=== PATIENT | female | born 1955 | race African-American/Black ===

== ENCOUNTER 2023-06-23 06:13 | Observation (INO) | payer MEDICARE ==
[2023-06-23 06:54] VITALS: BMI 28.2
[2023-06-23] MEDS ORDERED: Bisacodyl 5 MG TAB PO PRN (08:04)
[2023-06-23] MEDS ORDERED: Ondansetron PF 4 MG/2 ML Vial IVP PRN (08:04)
[2023-06-23] MEDS ORDERED: HumaLOG 300 UNITS/3 ML VIAL SC PRN ×2 (08:04)
[2023-06-23] MEDS ORDERED: Dextrose 5% in Water 1,000 ML IV PRN (08:04)
[2023-06-23] MEDS ORDERED: Glucagon 1 MG/ML KIT IM PRN (08:04)
[2023-06-23] MEDS ORDERED: Senokot S 8.6-50 MG TAB PO PRN (08:04)
[2023-06-23] MEDS ORDERED: Dextrose 50% Abboject 50 ML SYRINGE SLOW IVP PRN (08:04)
[2023-06-23] MEDS ORDERED: Bisacodyl 10 MG SUPP PR PRN (08:04)
[2023-06-23] MEDS: Lisinopril 10 MG TAB PO SCH (09:00)
[2023-06-23] MEDS: Sodium Chloride 0.9% 1,000 ML IV SCH ×2 (09:03→23:57)
[2023-06-23] MEDS: Pantoprazole 40 MG VIAL IVP SCH (09:05)
[2023-06-23] MEDS: Acetaminophen 325 MG TAB PO PRN (09:07)
[2023-06-23] MEDS: Oxybutynin 5 MG TAB PO SCH ×3 (09:07→20:08)
[2023-06-23 10:26] LABS: Hemoglobin A1c 6.5 % (4.0-6.0)
[2023-06-23 10:34] LABS: Acetaminophen Less than 10 mcg/mL (10.0-30.0); Alcohol Less than 10.0 mg/dL (Less than 10); Salicylate Less than 8.0 mg/dL (15.0-30.0)
[2023-06-23 16:20] LABS: SARS-CoV-2 NAA Rapid Test Not Detected (NotDetected)
[2023-06-23] MEDS: Dicyclomine 10 MG CAP PO SCH ×2 (16:23→20:08)
[2023-06-23 18:41] LABS: Amphetamine Not Detected (NotDetected); Barbiturates Screen Not Detected (NotDetected); Benzodiazepine Screen Not Detected (NotDetected); Cocaine Metabolite Screen Not Detected (NotDetected); Methadone Not Detected (NotDetected); Methamphetamine Not Detected (NotDetected); Opiate Screen Detected (NotDetected); Oxycodone Screen Not Detected (NotDetected); Phencyclidine (PCP) Not Detected (NotDetected); THC/Cannabinoid Screen Not Detected (NotDetected); Tricyclic Screen Not Detected (NotDetected)
[2023-06-24] MEDS: Acetaminophen 325 MG TAB PO PRN (06:45)
[2023-06-24 08:04] LABS: #Eosinphils 0.1 thou/uL (0.0-0.7); #Monocytes 0.5 thou/uL (0.11-0.59); #Neutrophils 2.7 thou/uL (1.40-6.50); %Basophils 0.4 % (0.0-1.0); %Eosinophils 2.1 % (0.0-10.0); %Lymphocytes 38.5 % (21.0-51.0); %Monocytes 8.4 % (0.0-10.0); %Neutrophils 50.6 % (42.0-75.0); Hematocrit 35.8 % (36.0-47.0); Hemoglobin 11.5 g/dL (12.0-16.0); Mean Corpuscular HGB CONC 32.1 g/dL (32.0-36.0); Mean Corpuscular Volume 87.1 fl (78.0-98.0); Mean Platelet Volume 10.9 fL (7.4-10.4); Platelet Count 212 10x3/uL (130-400); RBC Distribution Width 13.4 % (11.5-14.5); Red Blood Cell (RBC) Count 4.11 mill/uL (4.20-5.40); White Blood Cell (WBC) Count 5.4 10x3/uL (4.8-10.8)
[2023-06-24] MEDS: Oxybutynin 5 MG TAB PO SCH ×3 (08:14→20:00)
[2023-06-24] MEDS: Pantoprazole 40 MG VIAL IVP SCH (08:14)
[2023-06-24] MEDS: Lisinopril 10 MG TAB PO SCH (08:14)
[2023-06-24] MEDS ORDERED: Enoxaparin 40 MG (0.4 mL) SYRINGE SC SCH (09:00)
[2023-06-24 09:27] LABS: ALT (SGPT) 7 U/L (8-55); AST (SGOT) 17 U/L (5-34); Albumin 3.2 g/dL (3.4-4.8); Alkaline Phosphatase 50 U/L (40-110); Anion Gap 10 mmol/L (10-20); BUN (Urea Nitrogen) 6 mg/dL (9.8-20.1); Bilirubin, Total 0.7 mg/dL (0.2-1.2); Calc. Creatinine Clearance 84 mL/min (70-130); Calcium 8.6 mg/dL (7.8-10.44); Carbon Dioxide 24 mmol/L (23-31); Chloride 108 mmol/L (98-107); Estimated GFR 88; Globulin 2.8 g/dL (2.4-3.5); Glucose 90 mg/dL (80-115); Lipase 7 U/L (8-78); Potassium 4.4 mmol/L (3.5-5.1); Sodium 138 mmol/L (136-145)
[2023-06-24] MEDS: Dicyclomine 10 MG CAP PO SCH ×4 (11:34→20:00)
[2023-06-24] MEDS: Sodium Chloride 0.9% 1,000 ML IV SCH ×2 (17:53→23:13)
[2023-06-24 20:17] LABS: Campy jejuni + coli by PCR Negative (Negative); STEC Shiga Toxin 1+2 Negative (Negative); Salmonella spp. by PCR Negative (Negative); Shigella spp + EIEC by PCR Negative (Negative)
[2023-06-25 06:12] LABS: #Eosinphils 0.1 thou/uL (0.0-0.7); #Monocytes 0.6 thou/uL (0.11-0.59); #Neutrophils 3.5 thou/uL (1.40-6.50); %Basophils 0.3 % (0.0-1.0); %Eosinophils 1.3 % (0.0-10.0); %Lymphocytes 32.6 % (21.0-51.0); %Monocytes 9.8 % (0.0-10.0); %Neutrophils 55.7 % (42.0-75.0); Hematocrit 35.4 % (36.0-47.0); Hemoglobin 11.6 g/dL (12.0-16.0); Mean Corpuscular HGB CONC 32.8 g/dL (32.0-36.0); Mean Corpuscular Hemoglobin 28.2 pg (27.0-31.0); Mean Corpuscular Volume 85.9 fl (78.0-98.0); Mean Platelet Volume 9.8 fL (7.4-10.4); Platelet Count 257 10x3/uL (130-400); RBC Distribution Width 13.3 % (11.5-14.5); Red Blood Cell (RBC) Count 4.12 mill/uL (4.20-5.40); White Blood Cell (WBC) Count 6.2 10x3/uL (4.8-10.8)
[2023-06-25 06:41] LABS: ALT (SGPT) 7 U/L (8-55); AST (SGOT) 13 U/L (5-34); Albumin 3.1 g/dL (3.4-4.8); Alkaline Phosphatase 51 U/L (40-110); Anion Gap 11 mmol/L (10-20); BUN (Urea Nitrogen) 6 mg/dL (9.8-20.1); Bilirubin, Total 0.6 mg/dL (0.2-1.2); Calc. Creatinine Clearance 83 mL/min (70-130); Calcium 8.5 mg/dL (7.8-10.44); Carbon Dioxide 24 mmol/L (23-31); Chloride 109 mmol/L (98-107); Estimated GFR 86; Globulin 2.7 g/dL (2.4-3.5); Glucose 93 mg/dL (80-115); Magnesium 1.9 mg/dL (1.6-2.6); Protein, Total 5.8 g/dL (5.8-8.1); Sodium 140 mmol/L (136-145)
[2023-06-25] MEDS: Lisinopril 10 MG TAB PO SCH (08:53)
[2023-06-25] MEDS: Dicyclomine 10 MG CAP PO SCH ×4 (08:53→21:02)
[2023-06-25] MEDS: Pantoprazole 40 MG VIAL IVP SCH (08:53)
[2023-06-25] MEDS: Oxybutynin 5 MG TAB PO SCH ×3 (08:53→21:02)
[2023-06-25] MEDS: Sodium Chloride 0.9% 1,000 ML IV SCH (17:55)
[2023-06-26 02:40] VITALS: BP 123/71
[2023-06-26 04:50] LABS: #Eosinphils 0.1 thou/uL (0.0-0.7); #Monocytes 0.7 thou/uL (0.11-0.59); #Neutrophils 3.9 thou/uL (1.40-6.50); %Basophils 0.3 % (0.0-1.0); %Eosinophils 1.1 % (0.0-10.0); %Lymphocytes 33.8 % (21.0-51.0); %Monocytes 9.8 % (0.0-10.0); %Neutrophils 54.6 % (42.0-75.0); Hemoglobin 12.2 g/dL (12.0-16.0); Mean Corpuscular Volume 85.1 fl (78.0-98.0); Mean Platelet Volume 10.1 fL (7.4-10.4); Platelet Count 274 10x3/uL (130-400); RBC Distribution Width 13.2 % (11.5-14.5); Red Blood Cell (RBC) Count 4.35 mill/uL (4.20-5.40); White Blood Cell (WBC) Count 7.1 10x3/uL (4.8-10.8)
[2023-06-26 05:11] LABS: ALT (SGPT) 16 U/L (8-55); AST (SGOT) 24 U/L (5-34); Albumin 3.4 g/dL (3.4-4.8); Alkaline Phosphatase 79 U/L (40-110); Anion Gap 10 mmol/L (10-20); BUN (Urea Nitrogen) 9 mg/dL (9.8-20.1); Bilirubin, Total 0.3 mg/dL (0.2-1.2); Calc. Creatinine Clearance 61 mL/min (70-130); Carbon Dioxide 25 mmol/L (23-31); Chloride 107 mmol/L (98-107); Estimated GFR 59; Globulin 2.9 g/dL (2.4-3.5); Glucose 134 mg/dL (80-115); Potassium 4.1 mmol/L (3.5-5.1); Protein, Total 6.3 g/dL (5.8-8.1); Sodium 138 mmol/L (136-145)
[2023-06-26] MEDS ORDERED: Lidocaine 2% PF 100 mg/5 ml Syringe ONE (07:30)
[2023-06-26] MEDS ORDERED: PROPOFOL 40 ML ONE (07:30)
[2023-06-26] MEDS: Pantoprazole 40 MG VIAL IVP SCH (09:23)
[2023-06-26] MEDS: Dicyclomine 10 MG CAP PO SCH ×2 (09:23→15:07)
[2023-06-26] MEDS: Lisinopril 10 MG TAB PO SCH (09:23)
[2023-06-26] MEDS: Oxybutynin 5 MG TAB PO SCH (09:29)
[2023-06-26] MEDS: Sodium Chloride 0.9% 1,000 ML IV SCH (09:58)
[2023-06-26 14:37] VITALS: TEMP 98
[2023-06-26] MEDS ORDERED: FLU VACC QS2023(65UP)/MF59C/PF 60 MCG/0.5 ML SYRINGE IM ONE (15:00)
== END 2023-06-26 15:41 | disposition home or self-care (01) ==
LOC: T4-B 06:13
PROVIDERS: ADMIT Family Medicine; ATTEND Hospitalist
PROC: 0DB98ZX Excision of Duodenum, Via Natural or Artificial Opening Endoscopic, Diagnostic (ICD-10-PCS; principal; 2023-06-26)
PROC: 0D758ZZ Dilation of Esophagus, Via Natural or Artificial Opening Endoscopic (ICD-10-PCS; 2023-06-26)
DX: K20.90 Esophagitis, unspecified without bleeding (principal); K52.9 Noninfective gastroenteritis and colitis, unspecified; I10 Essential (primary) hypertension; E11.9 Type 2 diabetes mellitus without complications; Z86.010 Personal history of colon polyps; Z90.710 Acquired absence of both cervix and uterus; Z98.890 Other specified postprocedural states; Z79.84 Long term (current) use of oral hypoglycemic drugs; Z79.899 Other long term (current) drug therapy; Z90.89 Acquired absence of other organs
CPT/HCPCS: 0240U; 43239; 43249; 80053 ×3; 80306; 80307; 82962 ×4; 83036; 83630; 83690; 83735 ×3; 85025 ×3; 86850 ×2; 86870; 86900; 86901; 86920; 86921; 87505; 93005; 96374; 96375; 96376 ×2; G0378 ×4; 36415; 36416; 88305; 93010; C9113; J2001; J2405; J2704; J7050